=== PATIENT | female | born 1955 | race Two or more races ===

== ENCOUNTER → 2018-02-02 | Outpatient (CLI) | payer MEDICARE, MEDICAID ==
[~2018-02-02] MED LIST: CARI-316; GABA300C10; HYDR-2598
[2018-02-02 10:25] LABS: Urine Bacteria MOD /hpf (None Seen); Urine Blood Negative /uL (Negative); Urine WBC 136 /hpf (0 - 5)
[2018-02-02 11:06] LABS: Alanine Aminotransferase 24 U/L (13-56); Albumin 3.8 g/dL (3.4-5.0); Alkaline Phosphatase 186 U/L (45-117); Aspartate Aminotransferase 18 U/L (15-37); Bilirubin, Direct < 0.1 mg/dL (0-0.2); Bilirubin, Total 0.4 mg/dL (0.2-1.0); CRP High Sensitivity 1.22 mg/dL (< 0.3); Cholesterol 237 mg/dL (< 200); HDL Cholesterol 60 mg/dL (40-59); LDL Cholesterol 167 mg/dL (< 100); Triglycerides 159 mg/dL (< 150)
== END | disposition home or self-care (01) ==
LOC: LAB 09:17
PROVIDERS: ATTEND Internal Medicine
DX: Z00.01 Encounter for general adult medical examination with abnormal findings (principal); I10 Essential (primary) hypertension; M79.7 Fibromyalgia; F32.0 Major depressive disorder, single episode, mild; F41.9 Anxiety disorder, unspecified; Z79.899 Other long term (current) drug therapy
CPT/HCPCS: 36415; 80061; 80076; 81001; 83036; 84443; 85652; 86141

== ENCOUNTER 2018-06-04 08:24 | Emergency (ER) | payer MEDICARE, MEDICAID ==
[~2018-06-04] VITALS: Ht 160 cm; Wt 95.3 kg
[~2018-06-04 08:24] MED LIST changes: -CARI-316; +CARI350T22
[2018-06-04] MEDS ORDERED: KETOROLAC TROMETH 30 MG/ML 1ML VIAL IV ONE (09:15)
[2018-06-04] MEDS ORDERED: LORazepam 2MG/ML-1ML VIAL IV ONE (09:15)
[2018-06-04 09:20] LABS: Basophils # (auto) 0 uL; Basophils % (auto) 0.4 % (0.0-2.0); Eosinophils # (auto) 0.2 uL; Eosinophils % (auto) 2.5 % (0.0-7.0); Hematocrit 37.1 % (36.0-46.0); Hemoglobin 12.2 g/dL (12.2-16.2); Lymphocytes # (auto) 1.1 uL; Lymphocytes % (auto) 17.1 % (10.0-50.0); Mean Corpuscular Hemoglobin 29.3 pg (28.0-32.0); Mean Corpuscular Volume 88.7 fL (80.0-100.0); Monocytes # (auto) 0.3 uL; Neutrophils # (auto) 4.8 uL; Platelet Count (auto) 340 10^3/uL (140-450); Red Blood Cells 4.18 10^6/uL (4.0-5.20); Red Cell Distribution Width 13.4 % (11.8-14.3); White Blood Cell 6.4 10^3/uL (4.4-10.8)
[2018-06-04 09:39] LABS: Albumin 3.7 g/dL (3.4-5.0); Anion Gap 7 (5-15); Blood Urea Nitrogen 8 mg/dL (7-18); Calcium 9.3 mg/dL (8.5-10.1); Carbon Dioxide 25 mmol/L (21-32); Chloride 109 mmol/L (98-107); Glucose 85 mg/dL (74-106); Potassium 3.6 mmol/L (3.5-5.1); Sodium 141 mmol/L (136-145)
[2018-06-04 09:43] LABS: Alanine Aminotransferase 42 U/L (13-56); Alkaline Phosphatase 201 U/L (45-117); Aspartate Aminotransferase 24 U/L (15-37); BUN/Creatinine Ratio 10.5; Bilirubin, Total 0.4 mg/dL (0.2-1.0); GFR African American 99 mL/min; GFR Non-African American 82 mL/min; Total Protein 7.9 g/dL (6.4-8.2)
[2018-06-04 09:45] VITALS: BP 157/101
[2018-06-04 10:34] LABS: Urine Bacteria MOD /hpf (None Seen); Urine Blood Negative /uL (Negative); Urine Mucus FEW (None Seen); Urine Specific Gravity 1.013 (1.001-1.035); Urine WBC 17 /hpf (0 - 5)
[2018-06-04] MEDS ORDERED: HYDROcodone-ACET 10/325MG TAB PO ONE (11:00)
[2018-06-04] MEDS ORDERED: cefTRIAXone 1GM/50ML D5W 50 ML IV ONE (11:00)
== END 2018-06-04 11:33 | disposition home or self-care (01) ==
LOC: ER 08:24
DX: M79.7 Fibromyalgia (principal); N39.0 Urinary tract infection, site not specified; R51 Headache; R42 Dizziness and giddiness; I10 Essential (primary) hypertension; Z88.2 Allergy status to sulfonamides; Z88.6 Allergy status to analgesic agent
CPT/HCPCS: 36415; 71045; 80053; 81001; 83880; 84443; 84484; 85025; 96365; 96375; 99285; J0696; J1885; J2060

== ENCOUNTER → 2018-10-27 | Outpatient (CLI) | payer MEDICARE, MEDICAID ==
[2018-10-27 08:15] LABS: Cholesterol 199 mg/dL (< 200); Triglycerides 128 mg/dL (< 150)
[2018-10-27 08:17] LABS: HDL Cholesterol 74 mg/dL (40-59); LDL Cholesterol 111 mg/dL (< 100)
== END | disposition home or self-care (01) ==
LOC: LAB 07:46
PROVIDERS: ATTEND Internal Medicine
DX: Z12.11 Encounter for screening for malignant neoplasm of colon (principal); I10 Essential (primary) hypertension; E78.2 Mixed hyperlipidemia; Z79.899 Other long term (current) drug therapy
CPT/HCPCS: 36415; 80061; 83036

== ENCOUNTER → 2018-11-02 | Outpatient (CLI) | payer MEDICARE, MEDICAID | END | disposition home or self-care (01) | LOC: LAB 08:43 | PROVIDERS: ATTEND Internal Medicine | DX: Z12.11 Encounter for screening for malignant neoplasm of colon (principal); I10 Essential (primary) hypertension | CPT/HCPCS: 82270 ==

== ENCOUNTER → 2018-11-18 | Outpatient (CLI) | payer MEDICARE, MEDICAID ==
[2018-11-18 15:43] LABS: Alanine Aminotransferase 18 U/L (13-56); Aspartate Aminotransferase 16 U/L (15-37); Bilirubin, Direct < 0.1 mg/dL (0-0.2)
[2018-11-18 15:45] LABS: Alkaline Phosphatase 125 U/L (45-117); Bilirubin, Total 0.3 mg/dL (0.2-1.0); Total Protein 7.4 g/dL (6.4-8.2)
== END | disposition home or self-care (01) ==
LOC: LAB 14:12
PROVIDERS: ATTEND Internal Medicine
DX: E11.9 Type 2 diabetes mellitus without complications (principal); I10 Essential (primary) hypertension
CPT/HCPCS: 36415; 80076

== ENCOUNTER → 2018-12-28 | Day surgery (SDC) | payer MEDICARE, MEDICAID ==
[2018-12-24 12:36] LABS: Basophils # (auto) 0.1 uL; Basophils % (auto) 0.9 % (0.0-2.0); Eosinophils # (auto) 0.2 uL; Eosinophils % (auto) 3.4 % (0.0-7.0); Hematocrit 35.2 % (36.0-46.0); Hemoglobin 11.9 g/dL (12.2-16.2); Lymphocytes # (auto) 1.1 uL; Lymphocytes % (auto) 19.3 % (10.0-50.0); Mean Corpuscular Hemoglobin 30.4 pg (28.0-32.0); Mean Corpuscular Hgb Conc. 33.8 g/dL (32.0-36.0); Mean Corpuscular Volume 89.8 fL (80.0-100.0); Monocytes # (auto) 0.3 uL; Monocytes % (auto) 4.9 % (0.0-12.0); Neutrophils # (auto) 4.1 uL; Neutrophils % (auto) 71.5 % (37.0-80.0); Platelet Count (auto) 308 10^3/uL (140-450); Red Blood Cells 3.92 10^6/uL (4.0-5.20); Red Cell Distribution Width 13.4 % (11.8-14.3); White Blood Cell 5.7 10^3/uL (4.4-10.8)
[2018-12-24 12:39] LABS: Urine Blood Negative /uL (Negative); Urine Specific Gravity 1.012 (1.001-1.035)
[2018-12-24 12:53] LABS: INR 1.01 (0.9-1.15); Partial Thromboplastin Time 30.5 sec (23.78-33.04)
[2018-12-24 14:31] LABS: Calcium 9.2 mg/dL (8.5-10.1)
[2018-12-24 14:37] LABS: BUN/Creatinine Ratio 15.5; Bilirubin, Total 0.2 mg/dL (0.2-1.0); Total Protein 7.6 g/dL (6.4-8.2)
[~2018-12-28] VITALS: Ht 160 cm; Wt 92.5 kg
[~2018-12-28] MED LIST changes: -CARI350T22; -GABA300C10; +GLYCOPYRROLATE 0.2 MG/ML 1ML VIAL ONE; -HYDR-2598; +HYDR-4683 PO; +HYDROmorphone HCL 2 MG/ML VL IV PRN; +KETOROLAC TROMETH 30 MG/ML 1ML VIAL ONE; +LIDOCAINE 1% HCL (LOCAL ANESTH.) INJ 20ML MDV ONE; +LISI10TA6 PO; +MEPERIDINE HCL (50 MG/ML) 1 ML VIAL ONE; +METF-370 PO; +METO-169 PO; +METOCLOPRAMIDE HCL 5MG/ml INJ 2ml VIAL ONE; +MIDAZOLAM HCL 1MG/1ML-2 ML VIAL ONE; +MORPHINE SULF(PF) 0.5MG/ML 10ML VIAL ONE; +NALOXONE HCL 0.4 MG/ML VIAL IV PRN; +NEOSTIGMINE 1 MG/ML INJ (10mg/10ML VIAL) ONE; +ONDANSETRON HCL 4 MG/2 ML VIAL IV ONE; +PROPOFOL 10 MG/ML 20 ML IV ONE; +ROCURONIUM 10MG/ML 10ML VIAL IV ONE; +SUCCINYLCHOLINE CHLORIDE 20 MG/ML 10ML VIAL IV ONE; +ceFAZolin 1GM/50ML 100 ML IV ONE; +fentaNYL CITRATE 100 MCG/2 ML VL ONE
[2018-12-28] MEDS: HYDROmorphone HCL 2 MG/ML VL IV PRN ×2 (09:17→09:27)
[2018-12-28] MEDS: MEPERIDINE HCL (25 MG/ML) 1ML VIAL IV PRN ×2 (09:40→09:55)
[2018-12-28 10:14] VITALS: BP 112/77
== END | disposition home or self-care (01) ==
LOC: SUR 05:56
PROVIDERS: ATTEND Orthopaedic Surgery
DX: S83.282A Other tear of lateral meniscus, current injury, left knee, initial encounter (principal); S83.242A Other tear of medial meniscus, current injury, left knee, initial encounter; M11.262 Other chondrocalcinosis, left knee; M17.12 Unilateral primary osteoarthritis, left knee; E66.8 Other obesity; E11.9 Type 2 diabetes mellitus without complications; G89.29 Other chronic pain; F32.9 Major depressive disorder, single episode, unspecified; I10 Essential (primary) hypertension; G47.33 Obstructive sleep apnea (adult) (pediatric); K21.9 Gastro-esophageal reflux disease without esophagitis; M19.90 Unspecified osteoarthritis, unspecified site; Z68.36 Body mass index [BMI] 36.0-36.9, adult; Z79.899 Other long term (current) drug therapy; Z88.2 Allergy status to sulfonamides; Z91.041 Radiographic dye allergy status; Z98.890 Other specified postprocedural states; X58.XXXA Exposure to other specified factors, initial encounter; Y93.89 Activity, other specified; Y92.89 Other specified places as the place of occurrence of the external cause; Y99.8 Other external cause status
CPT/HCPCS: 29876; 29879; 29880; 36415; 80053; 81003; 82962; 85025; 85610; 85730; J0330; J0690; J1170; J1885; J2001; J2175; J2250; J2270; J2704; J2765; J3010

== ENCOUNTER 2019-10-19 09:36 | Inpatient (IN) | payer MEDICARE, MEDICAID ==
[~2019-10-19] VITALS: Ht 160 cm; Wt 90.7 kg
[~2019-10-19 09:36] MED LIST changes: -GLYCOPYRROLATE 0.2 MG/ML 1ML VIAL ONE; -HYDR-4683 PO; +HYDR-4833 PO; -HYDROmorphone HCL 2 MG/ML VL IV PRN; -KETOROLAC TROMETH 30 MG/ML 1ML VIAL ONE; -LIDOCAINE 1% HCL (LOCAL ANESTH.) INJ 20ML MDV ONE; -MEPERIDINE HCL (50 MG/ML) 1 ML VIAL ONE; -METOCLOPRAMIDE HCL 5MG/ml INJ 2ml VIAL ONE; -MIDAZOLAM HCL 1MG/1ML-2 ML VIAL ONE; -MORPHINE SULF(PF) 0.5MG/ML 10ML VIAL ONE; -NALOXONE HCL 0.4 MG/ML VIAL IV PRN; -NEOSTIGMINE 1 MG/ML INJ (10mg/10ML VIAL) ONE; -ONDANSETRON HCL 4 MG/2 ML VIAL IV ONE; -PROPOFOL 10 MG/ML 20 ML IV ONE; -ROCURONIUM 10MG/ML 10ML VIAL IV ONE; -SUCCINYLCHOLINE CHLORIDE 20 MG/ML 10ML VIAL IV ONE; -ceFAZolin 1GM/50ML 100 ML IV ONE; -fentaNYL CITRATE 100 MCG/2 ML VL ONE
[2019-10-19] MEDS ORDERED: SODIUM CHLORIDE 0.9% 500 ML IV ONE (09:53)
[2019-10-19] MEDS ORDERED: ONDANSETRON HCL 4 MG/2 ML VIAL IV ONE (10:15)
[2019-10-19] MEDS ORDERED: MORPHINE SULF INJ 2 MG/ML SYRINGE 1ML IV ONE (10:15)
[2019-10-19 10:16] LABS: Basophils # (auto) 0 10 ^3/uL (0-0.2); Basophils % (auto) 0.6 % (0.0-2.0); Eosinophils # (auto) 0.2 10 ^3/uL (0-0.8); Eosinophils % (auto) 3.7 % (0.0-7.0); Hematocrit 33.9 % (36.0-46.0); Hemoglobin 11.3 g/dL (12.2-16.2); Lymphocytes % (auto) 15.1 % (10.0-50.0); Mean Corpuscular Hemoglobin 29.9 pg (28.0-32.0); Mean Corpuscular Hgb Conc. 33.4 g/dL (32.0-36.0); Mean Corpuscular Volume 89.5 fL (80.0-100.0); Monocytes # (auto) 0.4 10 ^3/uL (0-1.3); Monocytes % (auto) 6.3 % (0.0-12.0); Neutrophils # (auto) 4.8 10 ^3/uL (1.6-8.6); Neutrophils % (auto) 74.3 % (37.0-80.0); Platelet Count (auto) 349 10^3/uL (140-450); Red Blood Cells 3.79 10^6/uL (4.0-5.20); Red Cell Distribution Width 13.2 % (11.8-14.3); White Blood Cell 6.5 10^3/uL (4.4-10.8)
[2019-10-19 10:31] LABS: Albumin 3.5 g/dL (3.4-5.0); Anion Gap 6 (5-15); Blood Urea Nitrogen 13 mg/dL (7-18); Calcium 8.6 mg/dL (8.5-10.1); Carbon Dioxide 27 mmol/L (21-32); Chloride 101 mmol/L (98-107); Glucose 81 mg/dL (74-106); Potassium 4.3 mmol/L (3.5-5.1); Sodium 134 mmol/L (136-145)
[2019-10-19 10:37] LABS: Alanine Aminotransferase 17 U/L (13-56); Alkaline Phosphatase 115 U/L (45-117); Aspartate Aminotransferase 15 U/L (15-37); BUN/Creatinine Ratio 14.4; Bilirubin, Total 0.3 mg/dL (0.2-1.0); GFR African American 82 mL/min; GFR Non-African American 67 mL/min
[2019-10-19] MEDS ORDERED: HYDROcodone-ACET 5/325MG TAB PO PRN (12:30)
[2019-10-19] MEDS ORDERED: ALBUTEROL SULF 2.5 MG/0.5ML(0.5%) NEB SOLN NEB PRN (12:30)
[2019-10-19] MEDS ORDERED: MORPHINE SULF INJ 2 MG/ML SYRINGE 1ML IV PRN (12:30)
[2019-10-19] MEDS ORDERED: IPRATROPIUM BROM 0.5 MG/2.5ML INH SOL NEB PRN (12:30)
[2019-10-19] MEDS ORDERED: NITROGLYCERIN 0.4 MG SL TAB SL PRN (12:30)
[2019-10-19] MEDS ORDERED: ACETAMINOPHEN 500 MG TAB PO PRN (12:30)
[2019-10-19] MEDS ORDERED: DEXTROSE (50%) 50ML SYRG IV PRN (12:30)
[2019-10-19] MEDS ORDERED: FAMOTIDINE 20 MG TAB PO ONE (12:45)
[2019-10-19 13:15] LABS: Cholesterol 147 mg/dL (< 200)
[2019-10-19 13:17] LABS: HDL Cholesterol 63 mg/dL (40-59); LDL Cholesterol 72 mg/dL (< 100); Triglycerides 204 mg/dL (< 150)
[2019-10-19] MEDS: SODIUM CHLORIDE 0.9% 1,000 ML IV SCH (13:35)
[2019-10-19 13:36] LABS: Urine Bacteria NONE SEEN /hpf (None Seen); Urine Blood Negative /uL (Negative); Urine Hyaline Cast FEW /lpf (0 - 2); Urine Specific Gravity 1.007 (1.001-1.035); Urine WBC 8 /hpf (0 - 5)
[2019-10-19 14:08] VITALS: BP 116/68
[2019-10-19 14:30] VITALS: BP 126/57
[2019-10-19] MEDS ORDERED: ATOR10TA PO (16:31)
[2019-10-19] MEDS ORDERED: GABA-339 PO (16:31)
[2019-10-19] MEDS ORDERED: HYDR-531 PO (16:31)
[2019-10-19] MEDS ORDERED: AMIT75TA2 PO (16:31)
[2019-10-19] MEDS ORDERED: IBUP200C95 PO (16:31)
[2019-10-19] MEDS ORDERED: CITA10TA70 PO (16:46)
[2019-10-19] MEDS ORDERED: TIZA4CAP PO (16:47)
[2019-10-19] MEDS ORDERED: AMLO5TAB15 PO (16:48)
[2019-10-19 17:00] VITALS: BP 118/78
[2019-10-19] MEDS: ACCU-CHEK COMFORT CURVE STRIP VI SCH ×2 (17:00→22:03)
[2019-10-19] MEDS: InsuLIN REG 1unit/0.01ml Soln (100units/ml) SC SCH ×2 (17:00→22:00)
[2019-10-19] MEDS: HYDROcodone-ACET 10/325MG TAB PO PRN (19:47)
[2019-10-19] MEDS: LORazepam 2MG/ML-1ML VIAL IV PRN (21:08)
[2019-10-19 22:00] VITALS: BP 114/75
[2019-10-20] VITALS (7 sets, daily range): BP systolic 112–165; BP diastolic 67–80
[2019-10-20] MEDS: SODIUM CHLORIDE 0.9% 1,000 ML IV SCH ×2 (01:50→15:10)
[2019-10-20] MEDS: ONDANSETRON HCL 4 MG/2 ML VIAL IV PRN ×2 (01:57→19:36)
[2019-10-20] MEDS: MORPHINE SULF INJ 2 MG/ML SYRINGE 1ML IV PRN ×2 (01:58→19:36)
[2019-10-20] MEDS: ACCU-CHEK COMFORT CURVE STRIP VI SCH ×4 (06:19→22:28)
[2019-10-20] MEDS: InsuLIN REG 1unit/0.01ml Soln (100units/ml) SC SCH ×4 (06:19→22:00)
[2019-10-20] MEDS: FAMOTIDINE 20 MG TAB PO SCH (09:40)
[2019-10-20] MEDS: HYDROcodone-ACET 10/325MG TAB PO PRN ×3 (09:41→22:28)
[2019-10-20] MEDS: LORazepam 2MG/ML-1ML VIAL IV PRN (11:43)
[2019-10-20] MEDS ORDERED: CITALOPRAM HYDROBR 20 MG TAB PO ONE (12:30)
[2019-10-20] MEDS ORDERED: MECLIZINE HCL 25 MG TAB PO PRN (12:45)
[2019-10-20 13:11] LABS: BUN/Creatinine Ratio 14.5; Calcium 8.8 mg/dL (8.5-10.1); Potassium 4.3 mmol/L (3.5-5.1)
[2019-10-20] MEDS ORDERED: AMITRIPTYLINE HCL 25 MG TAB PO SCH (22:00)
[2019-10-21 05:31] VITALS: BP 126/69
[2019-10-21] MEDS: SODIUM CHLORIDE 0.9% 1,000 ML IV SCH (06:49)
[2019-10-21] MEDS: ACCU-CHEK COMFORT CURVE STRIP VI SCH ×2 (06:49→11:58)
[2019-10-21] MEDS: InsuLIN REG 1unit/0.01ml Soln (100units/ml) SC SCH ×2 (06:49→11:30)
[2019-10-21 08:30] VITALS: BP 117/75
[2019-10-21] MEDS: FAMOTIDINE 20 MG TAB PO SCH (09:32)
[2019-10-21] MEDS: HYDROcodone-ACET 10/325MG TAB PO PRN (09:35)
[2019-10-21] MEDS ORDERED: PYRIDOXINE HCL 50 MG TAB PO SCH (10:00)
[2019-10-21] MEDS ORDERED: CITALOPRAM HYDROBR 20 MG TAB PO SCH (10:00)
[2019-10-21 12:30] VITALS: BP 124/79
== END 2019-10-21 14:06 | disposition home or self-care (01) | DRG 312 ==
LOC: ER 09:36 → TELE 09:37 → TELE-EAST 14:31
PROVIDERS: ADMIT Nurse Practitioner Acute Care; ATTEND Internal Medicine
DX: I95.2 Hypotension due to drugs (principal); E66.9 Obesity, unspecified; F32.9 Major depressive disorder, single episode, unspecified; F41.9 Anxiety disorder, unspecified; R51 Headache; E11.9 Type 2 diabetes mellitus without complications; T50.905A Adverse effect of unspecified drugs, medicaments and biological substances, initial encounter; Y92.89 Other specified places as the place of occurrence of the external cause; I10 Essential (primary) hypertension; Z80.9 Family history of malignant neoplasm, unspecified; Z83.3 Family history of diabetes mellitus; Z96.659 Presence of unspecified artificial knee joint; Z88.2 Allergy status to sulfonamides; Z91.041 Radiographic dye allergy status
CPT/HCPCS: 36415; 70450; 71045; 80048; 80053; 80061; 81001; 82962; 83036; 84443; 84484; 85025; 85652; 93005; 93306; 93886; 96361; 96374; 96375; G0378; J2405

== ENCOUNTER 2020-01-14 10:33 | Inpatient (IN) | payer MEDICARE, MEDICAID ==
[~2020-01-14] VITALS: Ht 160 cm; Wt 97.9 kg
[~2020-01-14 10:33] MED LIST changes: +AMIT75TA2 PO; +ATOR10TA PO; +CITA10TA70 PO; +GABA-339 PO; -HYDR-4833 PO; +HYDR-531 PO; +IBUP200C95 PO; -LISI10TA6 PO; -METF-370 PO; -METO-169 PO; +TIZA4CAP PO
[2020-01-14] MEDS ORDERED: ACETAMINOPHEN 325 MG TAB PO ONE (11:00)
[2020-01-14] MEDS ORDERED: SODIUM CHLORIDE 0.9% 1,000 ML IV ONE (11:12)
[2020-01-14 11:44] LABS: Basophils # (auto) 0 10 ^3/uL (0-0.2); Basophils % (auto) 0.6 % (0.0-2.0); Eosinophils # (auto) 0 10 ^3/uL (0-0.8); Eosinophils % (auto) 0.3 % (0.0-7.0); Hematocrit 39.4 % (36.0-46.0); Hemoglobin 12.9 g/dL (12.2-16.2); Lymphocytes # (auto) 0.6 10 ^3/uL (0.4-5.4); Mean Corpuscular Hemoglobin 27.9 pg (28.0-32.0); Mean Corpuscular Hgb Conc. 32.8 g/dL (32.0-36.0); Monocytes # (auto) 0.3 10 ^3/uL (0-1.3); Monocytes % (auto) 6.8 % (0.0-12.0); Neutrophils # (auto) 3.1 10 ^3/uL (1.6-8.6); Neutrophils % (auto) 78.3 % (37.0-80.0); Platelet Count (auto) 222 10^3/uL (140-450); Red Blood Cells 4.64 10^6/uL (4.0-5.20); Red Cell Distribution Width 14.1 % (11.8-14.3)
[2020-01-14 12:04] LABS: Albumin 3.6 g/dL (3.4-5.0); Calcium 8.1 mg/dL (8.5-10.1)
[2020-01-14 12:07] LABS: BUN/Creatinine Ratio 12.2; Bilirubin, Total 0.2 mg/dL (0.2-1.0); Total Protein 7.4 g/dL (6.4-8.2)
[2020-01-14 12:21] LABS: Magnesium 1.8 mg/dL (1.6-2.6)
[2020-01-14] MEDS ORDERED: KETOROLAC TROMETH 30 MG/ML 1ML VIAL IV ONE ×2 (13:00)
[2020-01-14] MEDS ORDERED: cefTRIAXone 1GM/50ML D5W 50 ML IV ONE (13:00)
[2020-01-14 13:13] LABS: INR 1.03 (0.9-1.15); Partial Thromboplastin Time 34.7 sec (23.64-32.05)
[2020-01-14] MEDS ORDERED: AZITHROMYCIN 500MG/ 250ML 250 ML IV ONE (17:15)
[2020-01-14] MEDS ORDERED: ZINC SULFATE 220mg CAP or TAB PO ONE (17:15)
[2020-01-14] MEDS ORDERED: LORazepam 0.5 MG TAB PO ONE (17:30)
[2020-01-14 17:42] LABS: Urine WBC None Seen /hpf (0 - 5)
[2020-01-14 17:51] LABS: Urine Bacteria NONE SEEN /hpf (None Seen); Urine Blood TRACE /uL (Negative); Urine Specific Gravity 1.008 (1.001-1.035)
[2020-01-14] MEDS ORDERED: MORPHINE SULF INJ 2 MG/ML SYRINGE 1ML IV PRN (18:30)
[2020-01-14] MEDS ORDERED: NITROGLYCERIN 0.4 MG SL TAB SL PRN (18:30)
[2020-01-14] MEDS ORDERED: NOREPINEPHRINE 8 MG/250ML KIT 250 ML IV ONE (18:50)
[2020-01-14 18:58] LABS: CRP High Sensitivity 4.86 mg/dL (< 0.3)
[2020-01-14] MEDS: NOREPINEPHRINE 8 MG/250ML KIT 250 ML IV SCH (19:00)
[2020-01-14] MEDS ORDERED: ALBUTEROL SULF HFA 90MCG INH 200DOSE IN SCH (22:00)
[2020-01-14] MEDS: DOXYCYCLINE 100 MG TAB/CAP PO SCH (22:02)
[2020-01-14] MEDS: ACETAMINOPHEN 500 MG TAB PO PRN (22:46)
[2020-01-15] MEDS: PIPERACILLIN-TAZOB 3.375GM 100 ML IV SCH ×5 (05:53→23:48)
[2020-01-15 07:18] LABS: Basophils # (auto) 0 10 ^3/uL (0-0.2); Basophils % (auto) 0.3 % (0.0-2.0); Eosinophils # (auto) 0 10 ^3/uL (0-0.8); Eosinophils % (auto) 0.7 % (0.0-7.0); Hematocrit 35.6 % (36.0-46.0); Hemoglobin 11.4 g/dL (12.2-16.2); Lymphocytes # (auto) 0.7 10 ^3/uL (0.4-5.4); Lymphocytes % (auto) 25.2 % (10.0-50.0); Mean Corpuscular Hemoglobin 27.5 pg (28.0-32.0); Mean Corpuscular Hgb Conc. 31.9 g/dL (32.0-36.0); Mean Corpuscular Volume 86.2 fL (80.0-100.0); Monocytes # (auto) 0.2 10 ^3/uL (0-1.3); Monocytes % (auto) 6.1 % (0.0-12.0); Neutrophils # (auto) 1.9 10 ^3/uL (1.6-8.6); Neutrophils % (auto) 67.7 % (37.0-80.0); Nucleated Red Blood Cells % 0.3 %; Platelet Count (auto) 221 10^3/uL (140-450); Red Blood Cells 4.13 10^6/uL (4.0-5.20); Red Cell Distribution Width 14.4 % (11.8-14.3); White Blood Cell 2.9 10^3/uL (4.4-10.8)
[2020-01-15 07:53] LABS: Potassium 3.9 mmol/L (3.5-5.1)
[2020-01-15 08:00] LABS: Albumin 2.9 g/dL (3.4-5.0); BUN/Creatinine Ratio 14.8; Bilirubin, Total 0.2 mg/dL (0.2-1.0); Calcium 7.7 mg/dL (8.5-10.1); Total Protein 6.3 g/dL (6.4-8.2)
[2020-01-15] MEDS: ACETAMINOPHEN 500 MG TAB PO PRN ×2 (08:40→16:47)
[2020-01-15] MEDS: ZINC SULFATE 220mg CAP or TAB PO SCH (10:24)
[2020-01-15] MEDS: DOXYCYCLINE 100 MG TAB/CAP PO SCH ×2 (10:25→23:09)
[2020-01-15] MEDS: ASCORBIC ACID 1,000 MG TAB PO SCH (10:25)
[2020-01-15] MEDS: CHOLECALCIFEROL (VITD3) 1,000IU=25mCg TAB PO SCH (10:26)
[2020-01-15] MEDS: ENOXAPARIN SOD 40 MG/0.4 ML SYRINGE SC SCH (10:27)
[2020-01-15] MEDS ORDERED: ONDANSETRON HCL 4 MG/2 ML VIAL IV ONE (10:30)
[2020-01-15] MEDS ORDERED: MORPHINE SULF INJ 2 MG/ML SYRINGE 1ML IV ONE (10:30)
[2020-01-15] MEDS ORDERED: traMADol HCL 50 MG TAB PO PRN (13:00)
[2020-01-15] MEDS ORDERED: LORazepam 0.5 MG TAB PO PRN (13:00)
[2020-01-15] MEDS ORDERED: hydrALAZINE HCL 20 MG/ML VL IV PRN (13:00)
[2020-01-15 13:40] VITALS: BP 185/106
[2020-01-15] MEDS ORDERED: BUSP15TA60 PO (13:59)
[2020-01-15] MEDS ORDERED: ATOR10TA52 (14:03)
[2020-01-15] MEDS: LORazepam 2MG/ML-1ML VIAL IV PRN (15:17)
[2020-01-15 17:18] VITALS: BP 159/99
[2020-01-15] MEDS: NOREPINEPHRINE 8 MG/250ML KIT 250 ML IV SCH (18:21)
[2020-01-15] MEDS ORDERED: amLODIPine BESYLATE 5 MG TAB PO ONE (18:45)
[2020-01-15] MEDS ORDERED: HYDROcodone-ACET 10/325MG TAB PO PRN (18:45)
[2020-01-15 22:00] VITALS: BP 117/65
[2020-01-15] MEDS: HYDROcodone-ACET 10/325MG TAB PO PRN (23:42)
[2020-01-16 06:00] VITALS: BP 136/81
[2020-01-16] MEDS: PIPERACILLIN-TAZOB 3.375GM 100 ML IV SCH ×2 (06:25→14:14)
[2020-01-16 06:34] LABS: Basophils # (auto) 0 10 ^3/uL (0-0.2); Basophils % (auto) 0.4 % (0.0-2.0); Eosinophils # (auto) 0 10 ^3/uL (0-0.8); Eosinophils % (auto) 0.6 % (0.0-7.0); Hematocrit 36.6 % (36.0-46.0); Lymphocytes # (auto) 0.9 10 ^3/uL (0.4-5.4); Lymphocytes % (auto) 26.3 % (10.0-50.0); Mean Corpuscular Hemoglobin 27.7 pg (28.0-32.0); Mean Corpuscular Volume 84.1 fL (80.0-100.0); Monocytes # (auto) 0.2 10 ^3/uL (0-1.3); Monocytes % (auto) 6.1 % (0.0-12.0); Neutrophils # (auto) 2.2 10 ^3/uL (1.6-8.6); Neutrophils % (auto) 66.6 % (37.0-80.0); Nucleated Red Blood Cells % 0.2 %; Platelet Count (auto) 248 10^3/uL (140-450); Red Blood Cells 4.34 10^6/uL (4.0-5.20); Red Cell Distribution Width 14.2 % (11.8-14.3); White Blood Cell 3.3 10^3/uL (4.4-10.8)
[2020-01-16] MEDS: MORPHINE SULF INJ 2 MG/ML SYRINGE 1ML IV PRN ×2 (06:40→22:04)
[2020-01-16 06:59] LABS: Albumin 3.3 g/dL (3.4-5.0); Calcium 8.3 mg/dL (8.5-10.1); Potassium 3.7 mmol/L (3.5-5.1)
[2020-01-16 07:11] LABS: BUN/Creatinine Ratio 14.1; Bilirubin, Total 0.3 mg/dL (0.2-1.0); CRP High Sensitivity 4.06 mg/dL (< 0.3); Total Protein 6.7 g/dL (6.4-8.2)
[2020-01-16 08:00] VITALS: BP 157/94
[2020-01-16] MEDS: ENOXAPARIN SOD 40 MG/0.4 ML SYRINGE SC SCH (10:13)
[2020-01-16] MEDS: HYDROcodone-ACET 10/325MG TAB PO PRN ×2 (10:14→18:23)
[2020-01-16] MEDS: CHOLECALCIFEROL (VITD3) 1,000IU=25mCg TAB PO SCH (10:14)
[2020-01-16] MEDS: ZINC SULFATE 220mg CAP or TAB PO SCH (10:15)
[2020-01-16] MEDS: DOXYCYCLINE 100 MG TAB/CAP PO SCH ×2 (10:15→21:51)
[2020-01-16] MEDS: ASCORBIC ACID 1,000 MG TAB PO SCH (10:15)
[2020-01-16] MEDS: amLODIPine BESYLATE 5 MG TAB PO SCH (10:16)
[2020-01-16] MEDS: LORazepam 2MG/ML-1ML VIAL IV PRN (11:41)
[2020-01-16 13:00] VITALS: BP 151/95
[2020-01-16] MEDS ORDERED: guaiFENesin-CODEINE Liq 5 ML UD PO ONE (14:15)
[2020-01-16 17:00] VITALS: BP 140/87
[2020-01-16 22:00] VITALS: BP 120/69
[2020-01-16] MEDS: guaiFENesin-CODEINE Liq 5 ML UD PO PRN (22:37)
[2020-01-17] MEDS: HYDROcodone-ACET 10/325MG TAB PO PRN ×2 (02:02→07:55)
[2020-01-17 05:00] VITALS: BP 141/98
[2020-01-17 08:00] VITALS: BP 152/84
[2020-01-17 09:00] VITALS: BP 151/94
[2020-01-17] MEDS: guaiFENesin-CODEINE Liq 5 ML UD PO PRN (09:45)
[2020-01-17] MEDS: ENOXAPARIN SOD 40 MG/0.4 ML SYRINGE SC SCH (09:45)
[2020-01-17] MEDS: ASCORBIC ACID 1,000 MG TAB PO SCH (09:46)
[2020-01-17] MEDS: CHOLECALCIFEROL (VITD3) 1,000IU=25mCg TAB PO SCH (09:46)
[2020-01-17] MEDS: ZINC SULFATE 220mg CAP or TAB PO SCH (09:46)
[2020-01-17] MEDS: DOXYCYCLINE 100 MG TAB/CAP PO SCH ×2 (09:46→20:53)
[2020-01-17] MEDS: amLODIPine BESYLATE 5 MG TAB PO SCH (09:47)
[2020-01-17] MEDS ORDERED: ONDANSETRON HCL 4 MG/2 ML VIAL IV PRN (11:15)
[2020-01-17 12:30] VITALS: BP 148/98
[2020-01-17 16:35] VITALS: BP 91/55
[2020-01-17] MEDS: MORPHINE SULF INJ 2 MG/ML SYRINGE 1ML IV PRN (20:54)
[2020-01-17 21:30] VITALS: BP 146/86
[2020-01-18 05:00] VITALS: BP 136/87
[2020-01-18 09:00] VITALS: BP 153/98
[2020-01-18] MEDS: ZINC SULFATE 220mg CAP or TAB PO SCH (10:08)
[2020-01-18] MEDS: amLODIPine BESYLATE 5 MG TAB PO SCH (10:08)
[2020-01-18] MEDS: CHOLECALCIFEROL (VITD3) 1,000IU=25mCg TAB PO SCH (10:09)
[2020-01-18] MEDS: DOXYCYCLINE 100 MG TAB/CAP PO SCH ×2 (10:09→20:53)
[2020-01-18] MEDS: ASCORBIC ACID 1,000 MG TAB PO SCH (10:09)
[2020-01-18] MEDS: ENOXAPARIN SOD 40 MG/0.4 ML SYRINGE SC SCH (10:11)
[2020-01-18] MEDS: LORazepam 2MG/ML-1ML VIAL IV PRN (10:29)
[2020-01-18 13:00] VITALS: BP 163/89
[2020-01-18 14:00] VITALS: BP 163/89
[2020-01-18] MEDS: ALBUTEROL SULF HFA 90MCG INH 200DOSE IN SCH ×2 (14:25→20:52)
[2020-01-18 17:24] VITALS: BP 125/85
[2020-01-18] MEDS: MORPHINE SULF INJ 2 MG/ML SYRINGE 1ML IV PRN (20:54)
[2020-01-19] MEDS: ALBUTEROL SULF HFA 90MCG INH 200DOSE IN SCH ×2 (04:22→15:15)
[2020-01-19 04:54] VITALS: BP 135/88
[2020-01-19 05:18] LABS: Basophils # (auto) 0 10 ^3/uL (0-0.2); Basophils % (auto) 0.2 % (0.0-2.0); Eosinophils # (auto) 0 10 ^3/uL (0-0.8); Eosinophils % (auto) 0.1 % (0.0-7.0); Hematocrit 40.2 % (36.0-46.0); Hemoglobin 13.2 g/dL (12.2-16.2); Lymphocytes # (auto) 0.6 10 ^3/uL (0.4-5.4); Lymphocytes % (auto) 13.9 % (10.0-50.0); Mean Corpuscular Hemoglobin 27.2 pg (28.0-32.0); Mean Corpuscular Hgb Conc. 32.8 g/dL (32.0-36.0); Mean Corpuscular Volume 82.8 fL (80.0-100.0); Monocytes # (auto) 0.4 10 ^3/uL (0-1.3); Monocytes % (auto) 8.5 % (0.0-12.0); Neutrophils # (auto) 3.2 10 ^3/uL (1.6-8.6); Neutrophils % (auto) 77.3 % (37.0-80.0); Nucleated Red Blood Cells % 0.1 %; Platelet Count (auto) 330 10^3/uL (140-450); Red Blood Cells 4.85 10^6/uL (4.0-5.20); Red Cell Distribution Width 14.1 % (11.8-14.3); White Blood Cell 4.2 10^3/uL (4.4-10.8)
[2020-01-19 05:40] LABS: Albumin 3.4 g/dL (3.4-5.0); Calcium 8.7 mg/dL (8.5-10.1); Potassium 3.2 mmol/L (3.5-5.1)
[2020-01-19 05:42] LABS: BUN/Creatinine Ratio 12.9
[2020-01-19 05:45] LABS: Bilirubin, Total 0.4 mg/dL (0.2-1.0); Total Protein 7.8 g/dL (6.4-8.2)
[2020-01-19 09:00] VITALS: BP 140/79
[2020-01-19] MEDS: ZINC SULFATE 220mg CAP or TAB PO SCH (09:39)
[2020-01-19] MEDS: amLODIPine BESYLATE 5 MG TAB PO SCH (09:39)
[2020-01-19] MEDS: CHOLECALCIFEROL (VITD3) 1,000IU=25mCg TAB PO SCH (09:40)
[2020-01-19] MEDS: DOXYCYCLINE 100 MG TAB/CAP PO SCH (09:40)
[2020-01-19] MEDS: ASCORBIC ACID 1,000 MG TAB PO SCH (09:40)
[2020-01-19] MEDS: ENOXAPARIN SOD 40 MG/0.4 ML SYRINGE SC SCH (09:41)
[2020-01-19] MEDS ORDERED: POTASSIUM CHL 20 Meq TABLET PO ONE (09:45)
[2020-01-19] MEDS: LORazepam 2MG/ML-1ML VIAL IV PRN (11:28)
[2020-01-19 13:00] VITALS: BP 140/89
[2020-01-19] MEDS ORDERED: CHOL20007 PO (14:06)
[2020-01-19] MEDS ORDERED: MULTTAB75 PO (14:06)
[2020-01-19] MEDS ORDERED: ASCO10003 PO (14:06)
[2020-01-19] MEDS ORDERED: AML5T PO (14:06)
[2020-01-19] MEDS ORDERED: DOX100T PO (14:06)
[2020-01-19] MEDS ORDERED: DEXT1SYP9 PO (14:06)
[2020-01-19 14:42] VITALS: BP 140/89
== END 2020-01-19 16:05 | disposition home or self-care (01) | DRG 177 ==
LOC: ER 10:33 → TELE 10:34 → TELE-EAST 01-15 13:33
PROVIDERS: ADMIT Nurse Practitioner Acute Care; ATTEND Internal Medicine
DX: U07.1 COVID-19 (principal); J96.00 Acute respiratory failure, unspecified whether with hypoxia or hypercapnia; I10 Essential (primary) hypertension; M79.7 Fibromyalgia; E66.9 Obesity, unspecified; E11.9 Type 2 diabetes mellitus without complications; J40 Bronchitis, not specified as acute or chronic; J02.0 Streptococcal pharyngitis; F32.9 Major depressive disorder, single episode, unspecified; F41.9 Anxiety disorder, unspecified; R19.7 Diarrhea, unspecified; Z88.2 Allergy status to sulfonamides; Z79.899 Other long term (current) drug therapy; Z98.51 Tubal ligation status; Z80.9 Family history of malignant neoplasm, unspecified; Z83.3 Family history of diabetes mellitus; Z91.041 Radiographic dye allergy status; E88.09 Other disorders of plasma-protein metabolism, not elsewhere classified; Z68.37 Body mass index [BMI] 37.0-37.9, adult
CPT/HCPCS: 36415; 36600; 71045; 80053; 81001; 82728; 82805; 83605; 83615; 83735; 83880; 84443; 84484; 85025; 85379; 85610; 85730; 86141; 87040; 87493; 87804; 87880; 93005; 94640; G0378; J0696; J1885; J2405; J2543

== ENCOUNTER 2020-12-12 05:56 | Day surgery (SDC) | payer MEDICARE, MEDICAID ==
[2020-12-10 12:17] LABS: Basophils # (auto) 0 10 ^3/uL (0-0.2); Basophils % (auto) 0.5 % (0.0-2.0); Eosinophils # (auto) 0.1 10 ^3/uL (0-0.8); Eosinophils % (auto) 2.1 % (0.0-7.0); Hematocrit 39.9 % (36.0-46.0); Hemoglobin 13.6 g/dL (12.2-16.2); Lymphocytes # (auto) 0.9 10 ^3/uL (0.4-5.4); Lymphocytes % (auto) 15.7 % (10.0-50.0); Mean Corpuscular Hemoglobin 29.7 pg (28.0-32.0); Mean Corpuscular Hgb Conc. 34.2 g/dL (32.0-36.0); Mean Corpuscular Volume 86.9 fL (80.0-100.0); Monocytes # (auto) 0.3 10 ^3/uL (0-1.3); Monocytes % (auto) 4.4 % (0.0-12.0); Neutrophils # (auto) 4.6 10 ^3/uL (1.6-8.6); Neutrophils % (auto) 77.3 % (37.0-80.0); Nucleated Red Blood Cells % 0.1 %; Platelet Count (auto) 343 10^3/uL (140-450); Red Blood Cells 4.59 10^6/uL (4.0-5.20); Red Cell Distribution Width 14.8 % (11.8-14.3); White Blood Cell 5.9 10^3/uL (4.4-10.8)
[2020-12-10 12:24] LABS: INR 1.09 (0.9-1.15); Partial Thromboplastin Time 29.5 sec (23.0-31.2)
[2020-12-10 12:26] LABS: Urine Bacteria NONE SEEN /hpf (None Seen); Urine Blood Negative /uL (Negative); Urine Specific Gravity 1.015 (1.001-1.035); Urine WBC 4 /hpf (0 - 5)
[2020-12-10 12:42] LABS: Potassium 3.7 mmol/L (3.5-5.1)
[2020-12-10 13:03] LABS: Bilirubin, Total 0.5 mg/dL (0.2-1.0); Calcium 8.7 mg/dL (8.5-10.1); Total Protein 7.6 g/dL (6.4-8.2)
[~2020-12-12] VITALS: Ht 160 cm; Wt 90.7 kg
[~2020-12-12 05:56] MED LIST changes: +AML5T PO; +ASCO10003 PO; +BUSP15TA60 PO; +CHOL20007 PO; -CITA10TA70 PO; +DEXT1SYP9 PO; +DOX100T PO; +MULTTAB75 PO
[2020-12-12] MEDS ORDERED: ceFAZolin 1GM/50ML 50 ML IV ONE (06:35)
[2020-12-12] MEDS ORDERED: ROPIVACAINE 0.5% (5MG/ML) 20ML AMPULE IJ ONE (06:54)
[2020-12-12] MEDS ORDERED: NEOMYCIN-BACITRACIN-POLYM 15GM TOP OINT TOP ONE (06:54)
[2020-12-12] MEDS ORDERED: SUCCINYLCHOLINE CHLORIDE 20 MG/ML 10ML VIAL IV ONE (07:02)
[2020-12-12] MEDS ORDERED: LIDOCAINE 1% HCL (LOCAL ANESTH.) INJ 20ML MDV ONE (07:02)
[2020-12-12] MEDS ORDERED: ceFAZolin 1GM VL ONE ×2 (07:02→07:45)
[2020-12-12] MEDS ORDERED: SODIUM CHLORIDE LOCK 10 ML ONE (07:21)
[2020-12-12] MEDS ORDERED: fentaNYL CITRATE 100 MCG/2 ML VL ONE (07:21)
[2020-12-12] MEDS ORDERED: MIDAZOLAM HCL 1MG/1ML-2 ML VIAL ONE (07:21)
[2020-12-12] MEDS ORDERED: ONDANSETRON HCL 4 MG/2 ML VIAL ONE (07:21)
[2020-12-12] MEDS ORDERED: PROPOFOL 10 MG/ML 20 ML IV ONE (07:21)
[2020-12-12] MEDS ORDERED: methylPREDNISolone ACETATE 80 MG/ML VL ONE (08:08)
[2020-12-12] MEDS ORDERED: MORPHINE SULFATE 4 MG/ML SYR/VIAL IV PRN (08:45)
[2020-12-12] MEDS ORDERED: METOCLOPRAMIDE HCL 5MG/ml INJ 2ml VIAL IV PRN (08:45)
[2020-12-12] MEDS: HYDROmorphone HCL 2 MG/ML VL IV PRN ×3 (08:50→09:10)
[2020-12-12 09:15] VITALS: BP 130/73
== END 2020-12-12 09:20 | disposition home or self-care (01) ==
LOC: SUR 05:56
PROVIDERS: ATTEND Podiatrist Foot & Ankle Surgery
DX: S86.312A Strain of muscle(s) and tendon(s) of peroneal muscle group at lower leg level, left leg, initial encounter (principal); M25.372 Other instability, left ankle; M79.7 Fibromyalgia; M19.90 Unspecified osteoarthritis, unspecified site; E66.01 Morbid (severe) obesity due to excess calories; G62.9 Polyneuropathy, unspecified; F41.9 Anxiety disorder, unspecified; F99 Mental disorder, not otherwise specified; Z20.822 Contact with and (suspected) exposure to COVID-19; Z98.890 Other specified postprocedural states; Z79.899 Other long term (current) drug therapy; Z91.041 Radiographic dye allergy status; Z88.1 Allergy status to other antibiotic agents; Z68.35 Body mass index [BMI] 35.0-35.9, adult; X58.XXXA Exposure to other specified factors, initial encounter; Y93.89 Activity, other specified; Y92.89 Other specified places as the place of occurrence of the external cause; Y99.8 Other external cause status
CPT/HCPCS: 27658; 27698; 36415; 80053; 81001; 84702; 85025; 85610; 85730; J0330; J0690; J1040; J1170; J2001; J2250; J2270; J2405; J2704; J2795; J3010; U0003

== ENCOUNTER 2020-12-23 12:04 | Inpatient (IN) | payer MEDICARE, MEDICAID ==
[~2020-12-23] VITALS: Ht 160 cm; Wt 99.1 kg
[2020-12-23] MEDS ORDERED: ACETAMINOPHEN 325 MG TAB PO ONE (12:30)
[2020-12-23] MEDS ORDERED: SODIUM CHLORIDE 0.9% 1,000 ML IVB ONE (12:45)
[2020-12-23 13:40] LABS: Basophils # (auto) 0.1 10 ^3/uL (0-0.2); Basophils % (auto) 0.4 % (0.0-2.0); Eosinophils # (auto) 0.2 10 ^3/uL (0-0.8); Eosinophils % (auto) 0.9 % (0.0-7.0); Hematocrit 37.7 % (36.0-46.0); Hemoglobin 12.6 g/dL (12.2-16.2); Lymphocytes # (auto) 0.8 10 ^3/uL (0.4-5.4); Lymphocytes % (auto) 3.7 % (10.0-50.0); Mean Corpuscular Hemoglobin 29.2 pg (28.0-32.0); Mean Corpuscular Hgb Conc. 33.4 g/dL (32.0-36.0); Mean Corpuscular Volume 87.5 fL (80.0-100.0); Monocytes # (auto) 0.5 10 ^3/uL (0-1.3); Monocytes % (auto) 2.5 % (0.0-12.0); Neutrophils % (auto) 92.5 % (37.0-80.0); Platelet Count (auto) 340 10^3/uL (140-450); Red Blood Cells 4.31 10^6/uL (4.0-5.20); Red Cell Distribution Width 14.7 % (11.8-14.3); White Blood Cell 21.7 10^3/uL (4.4-10.8)
[2020-12-23 13:43] LABS: Urine WBC None Seen /hpf (0 - 5)
[2020-12-23 13:52] LABS: Urine Bacteria NONE SEEN /hpf (None Seen); Urine Blood Negative /uL (Negative); Urine Specific Gravity 1.009 (1.001-1.035)
[2020-12-23 13:57] LABS: Albumin 3.5 g/dL (3.4-5.0); BUN/Creatinine Ratio 15.5; Calcium 8.1 mg/dL (8.5-10.1); Magnesium 1.9 mg/dL (1.6-2.6); Potassium 3.3 mmol/L (3.5-5.1)
[2020-12-23 13:58] LABS: INR 1.07 (0.9-1.15); Partial Thromboplastin Time 26.9 sec (23.0-31.2)
[2020-12-23 14:00] LABS: Bilirubin, Total 0.5 mg/dL (0.2-1.0); Total Protein 7.3 g/dL (6.4-8.2)
[2020-12-23] MEDS ORDERED: HYDROcodone-ACET 10/325MG TAB PO ONE (14:00)
[2020-12-23] MEDS ORDERED: POTASSIUM CHL 20 Meq TABLET PO ONE ×2 (14:30→18:30)
[2020-12-23] MEDS ORDERED: cefTRIAXone 1GM/50ML D5W 50 ML IV ONE (14:30)
[2020-12-23] MEDS ORDERED: NITROGLYCERIN 0.4 MG SL TAB SL PRN ×2 (15:45→18:30)
[2020-12-23] MEDS ORDERED: MORPHINE SULF INJ 2 MG/ML SYRINGE 1ML IV PRN ×2 (15:45→18:30)
[2020-12-23] MEDS ORDERED: MULTIPLE VITAMIN TAB PO ONE (18:30)
[2020-12-23] MEDS ORDERED: AZITHROMYCIN 500MG/ 250ML 250 ML IV ONE (18:30)
[2020-12-23] MEDS ORDERED: hydrALAZINE HCL 20 MG/ML VL IV PRN (18:30)
[2020-12-23] MEDS ORDERED: ACETAMINOPHEN 325 MG TAB PO PRN (18:30)
[2020-12-23] MEDS ORDERED: guaiFENesin-DM 100/10mg/5ml SYR PO PRN (18:30)
[2020-12-23] MEDS ORDERED: BACLOFEN 10 MG TAB PO PRN (18:30)
[2020-12-23] MEDS ORDERED: DOCUSATE SOD 100 MG CAP PO PRN (18:30)
[2020-12-23] MEDS ORDERED: ONDANSETRON HCL 4 MG/2 ML VIAL IV PRN (18:30)
[2020-12-23] MEDS: MORPHINE SULF INJ 2 MG/ML SYRINGE 1ML IV PRN ×2 (19:01→23:58)
[2020-12-23] MEDS ORDERED: ENOXAPARIN SOD 100 MG/1 ML SYRINGE SC ONE (20:00)
[2020-12-23 20:43] LABS: Cholesterol 147 mg/dL (< 200); HDL Cholesterol 102 mg/dL (40-59); LDL Cholesterol 36 mg/dL (< 100); Triglycerides 67 mg/dL (< 150)
[2020-12-23] MEDS: SODIUM CHLOR 0.9% PF (SALINE LOCK) 10ML VIAL/SYR IV SCH (22:00)
[2020-12-23] MEDS ORDERED: ENOXAPARIN SOD 40 MG/0.4 ML SYRINGE SC SCH (22:00)
[2020-12-23] MEDS: ATORVASTATIN 20 MG TAB PO SCH (22:43)
[2020-12-23] MEDS: AMITRIPTYLINE HCL 25 MG TAB PO SCH (22:43)
[2020-12-23 22:51] LABS: Urine Bacteria NONE SEEN /hpf (None Seen); Urine Blood Negative /uL (Negative); Urine Specific Gravity 1.006 (1.001-1.035); Urine WBC 1 /hpf (0 - 5)
[2020-12-23 23:07] LABS: Alcohol, Urine < 3.0 mg/dL (0-10); Amphetamine Screen, Urine NEGATIVE (NEGATIVE); Barbiturate Scree,Urine NEGATIVE (NEGATIVE); Benzodiazephine Screen, Urine NEGATIVE (NEGATIVE); Cannabinoid Screen, Urine POSITIVE (NEGATIVE); Cocaine Screen, Urine NEGATIVE (NEGATIVE); Phencyclidine Screen, Urine NEGATIVE (NEGATIVE)
[2020-12-23 23:26] LABS: Opiate Scree,Urine POSITIVE (NEGATIVE)
[2020-12-24] VITALS (9 sets, daily range): BP systolic 120–139; BP diastolic 58–81
[2020-12-24] MEDS: MORPHINE SULF INJ 2 MG/ML SYRINGE 1ML IV PRN ×4 (04:28→22:08)
[2020-12-24] MEDS: SODIUM CHLOR 0.9% PF (SALINE LOCK) 10ML VIAL/SYR IV SCH ×3 (05:30→21:05)
[2020-12-24] MEDS: HYDROcodone-ACET 5/325MG TAB PO PRN (06:03)
[2020-12-24 06:30] LABS: Basophils # (auto) 0 10 ^3/uL (0-0.2); Basophils % (auto) 0.1 % (0.0-2.0); Eosinophils # (auto) 0.2 10 ^3/uL (0-0.8); Eosinophils % (auto) 1.2 % (0.0-7.0); Hematocrit 35.9 % (36.0-46.0); Hemoglobin 11.8 g/dL (12.2-16.2); Lymphocytes # (auto) 1.1 10 ^3/uL (0.4-5.4); Lymphocytes % (auto) 5.7 % (10.0-50.0); Mean Corpuscular Hemoglobin 28.9 pg (28.0-32.0); Mean Corpuscular Volume 87.7 fL (80.0-100.0); Monocytes # (auto) 0.4 10 ^3/uL (0-1.3); Monocytes % (auto) 2.1 % (0.0-12.0); Neutrophils # (auto) 18.3 10 ^3/uL (1.6-8.6); Neutrophils % (auto) 90.9 % (37.0-80.0); Platelet Count (auto) 314 10^3/uL (140-450); Red Blood Cells 4.09 10^6/uL (4.0-5.20); Red Cell Distribution Width 14.7 % (11.8-14.3); White Blood Cell 20.1 10^3/uL (4.4-10.8)
[2020-12-24 06:43] LABS: Chloride 108 mmol/L (98-107); Potassium 3.7 mmol/L (3.5-5.1); Sodium 138 mmol/L (136-145)
[2020-12-24 07:00] LABS: Alanine Aminotransferase 34 U/L (13-56); Albumin 3.1 g/dL (3.4-5.0); Alkaline Phosphatase 166 U/L (45-117); Anion Gap 7 (5-15); Aspartate Aminotransferase 20 U/L (15-37); BUN/Creatinine Ratio 14.8; Bilirubin, Total 0.6 mg/dL (0.2-1.0); Blood Urea Nitrogen 9 mg/dL (7-18); Calcium 8.4 mg/dL (8.5-10.1); Carbon Dioxide 23 mmol/L (21-32); GFR African American 127 mL/min; GFR Non-African American 105 mL/min; Glucose 80 mg/dL (74-106); Magnesium 2.2 mg/dL (1.6-2.6); Phosphorus 2.5 mg/dL (2.5-4.90); Total Protein 6.9 g/dL (6.4-8.2); Uric Acid 4.7 mg/dL (2.6-6.0)
[2020-12-24] MEDS: cefTRIAXone 1GM/50ML D5W 50 ML IV SCH (08:45)
[2020-12-24] MEDS: AZITHROMYCIN 500MG/ 250ML 250 ML IV SCH (09:29)
[2020-12-24] MEDS: ASCORBIC ACID 1,000 MG TAB PO SCH (09:30)
[2020-12-24] MEDS: MULTIPLE VITAMIN TAB PO SCH (09:30)
[2020-12-24] MEDS: amLODIPine BESYLATE 5 MG TAB PO SCH (09:31)
[2020-12-24] MEDS ORDERED: POTASSIUM CHL 20 Meq TABLET PO SCH (10:00)
[2020-12-24] MEDS ORDERED: CHOLECALCIFEROL (VITD3) 2,000 UNIT CAP/TAB PO SCH (10:00)
[2020-12-24] MEDS ORDERED: MULTIPLE VITAMINS W/ MINERALS TAB PO SCH (10:00)
[2020-12-24] MEDS: LORazepam 0.5 MG TAB PO PRN (12:08)
[2020-12-24] MEDS ORDERED: ENOXAPARIN SOD 40 MG/0.4 ML SYRINGE SC ONE (13:30)
[2020-12-24] MEDS ORDERED: LACTULOSE 20Gm/30ML SOLN PO ONE (15:45)
[2020-12-24] MEDS: IPRATROPIUM BROM 0.5 MG/2.5ML INH SOL NEB SCH ×2 (19:00→22:37)
[2020-12-24] MEDS: ALBUTEROL SULF 2.5 MG/0.5ML(0.5%) NEB SOLN NEB SCH ×2 (19:00→22:37)
[2020-12-24] MEDS: AMITRIPTYLINE HCL 25 MG TAB PO SCH (21:04)
[2020-12-24] MEDS: ATORVASTATIN 20 MG TAB PO SCH (21:04)
[2020-12-24] MEDS: ENOXAPARIN SOD 100 MG/1 ML SYRINGE SC SCH (21:05)
[2020-12-25] VITALS (7 sets, daily range): BP systolic 119–139; BP diastolic 64–86
[2020-12-25] MEDS: LORazepam 0.5 MG TAB PO PRN ×3 (01:29→21:29)
[2020-12-25] MEDS: MORPHINE SULF INJ 2 MG/ML SYRINGE 1ML IV PRN ×5 (03:12→23:19)
[2020-12-25] MEDS: SODIUM CHLOR 0.9% PF (SALINE LOCK) 10ML VIAL/SYR IV SCH ×3 (05:57→21:28)
[2020-12-25] MEDS: IPRATROPIUM BROM 0.5 MG/2.5ML INH SOL NEB SCH ×3 (07:18→21:26)
[2020-12-25] MEDS: ALBUTEROL SULF 2.5 MG/0.5ML(0.5%) NEB SOLN NEB SCH ×3 (07:18→21:26)
[2020-12-25] MEDS: cefTRIAXone 1GM/50ML D5W 50 ML IV SCH (08:39)
[2020-12-25] MEDS: MULTIPLE VITAMIN TAB PO SCH (09:19)
[2020-12-25] MEDS: ENOXAPARIN SOD 100 MG/1 ML SYRINGE SC SCH (09:19)
[2020-12-25] MEDS: ASCORBIC ACID 1,000 MG TAB PO SCH (09:19)
[2020-12-25] MEDS: LACTULOSE 20Gm/30ML SOLN PO SCH (09:19)
[2020-12-25] MEDS: amLODIPine BESYLATE 5 MG TAB PO SCH (09:21)
[2020-12-25] MEDS: AZITHROMYCIN 500MG/ 250ML 250 ML IV SCH (09:29)
[2020-12-25] MEDS ORDERED: ENOXAPARIN SOD 40 MG/0.4 ML SYRINGE SC SCH (10:00)
[2020-12-25 10:17] LABS: Basophils # (auto) 0 10 ^3/uL (0-0.2); Basophils % (auto) 0.2 % (0.0-2.0); Eosinophils # (auto) 0.1 10 ^3/uL (0-0.8); Eosinophils % (auto) 1.4 % (0.0-7.0); Hematocrit 36.8 % (36.0-46.0); Hemoglobin 12.2 g/dL (12.2-16.2); Lymphocytes # (auto) 0.8 10 ^3/uL (0.4-5.4); Lymphocytes % (auto) 7.4 % (10.0-50.0); Mean Corpuscular Hemoglobin 29.1 pg (28.0-32.0); Mean Corpuscular Hgb Conc. 33.1 g/dL (32.0-36.0); Mean Corpuscular Volume 88.1 fL (80.0-100.0); Monocytes # (auto) 0.3 10 ^3/uL (0-1.3); Platelet Count (auto) 308 10^3/uL (140-450); Red Blood Cells 4.18 10^6/uL (4.0-5.20); Red Cell Distribution Width 14.5 % (11.8-14.3); White Blood Cell 10.2 10^3/uL (4.4-10.8)
[2020-12-25] MEDS ORDERED: ERGOCALCIFEROL 50,000 UNIT(1.25MG) CAP PO SCH (11:00)
[2020-12-25] MEDS: ATORVASTATIN 20 MG TAB PO SCH (21:28)
[2020-12-25] MEDS: AMITRIPTYLINE HCL 25 MG TAB PO SCH (21:28)
[2020-12-25] MEDS: HYDROcodone-ACET 5/325MG TAB PO PRN (21:29)
[2020-12-26 05:00] VITALS: BP 121/65
[2020-12-26] MEDS: SODIUM CHLOR 0.9% PF (SALINE LOCK) 10ML VIAL/SYR IV SCH ×2 (06:09→10:34)
[2020-12-26] MEDS: ALBUTEROL SULF 2.5 MG/0.5ML(0.5%) NEB SOLN NEB SCH ×3 (06:44→11:55)
[2020-12-26] MEDS: IPRATROPIUM BROM 0.5 MG/2.5ML INH SOL NEB SCH ×3 (06:44→11:55)
[2020-12-26 08:30] VITALS: BP 126/97
[2020-12-26 08:58] VITALS: BP 126/97
[2020-12-26] MEDS: cefTRIAXone 1GM/50ML D5W 50 ML IV SCH (09:04)
[2020-12-26] MEDS: MULTIPLE VITAMIN TAB PO SCH (09:05)
[2020-12-26] MEDS: LACTULOSE 20Gm/30ML SOLN PO SCH (09:05)
[2020-12-26] MEDS: amLODIPine BESYLATE 5 MG TAB PO SCH (09:05)
[2020-12-26] MEDS ORDERED: ASCORBIC ACID 500 MG TAB PO SCH (10:00)
[2020-12-26] MEDS ORDERED: ENOXAPARIN SOD 40 MG/0.4 ML SYRINGE SC SCH (10:00)
[2020-12-26] MEDS: AZITHROMYCIN 500MG/ 250ML 250 ML IV SCH (10:27)
[2020-12-26] MEDS: MORPHINE SULF INJ 2 MG/ML SYRINGE 1ML IV PRN (10:32)
[2020-12-26 10:49] LABS: Basophils # (auto) 0 10 ^3/uL (0-0.2); Basophils % (auto) 0.4 % (0.0-2.0); Eosinophils # (auto) 0.3 10 ^3/uL (0-0.8); Eosinophils % (auto) 3.2 % (0.0-7.0); Hematocrit 39.9 % (36.0-46.0); Hemoglobin 13.6 g/dL (12.2-16.2); Lymphocytes # (auto) 0.9 10 ^3/uL (0.4-5.4); Lymphocytes % (auto) 10.7 % (10.0-50.0); Mean Corpuscular Hemoglobin 29.7 pg (28.0-32.0); Mean Corpuscular Volume 87.3 fL (80.0-100.0); Monocytes # (auto) 0.3 10 ^3/uL (0-1.3); Monocytes % (auto) 3.8 % (0.0-12.0); Neutrophils # (auto) 6.6 10 ^3/uL (1.6-8.6); Neutrophils % (auto) 81.9 % (37.0-80.0); Platelet Count (auto) 343 10^3/uL (140-450); Red Blood Cells 4.57 10^6/uL (4.0-5.20); Red Cell Distribution Width 14.2 % (11.8-14.3)
[2020-12-26] MEDS ORDERED: AZIT500T66 PO (11:59)
[2020-12-26] MEDS ORDERED: ERGO1CAP23 PO (11:59)
[2020-12-26] MEDS ORDERED: ALBUAER3 IN (11:59)
[2020-12-26] MEDS ORDERED: AMOX-277 PO (11:59)
[2020-12-26 12:40] VITALS: BP 122/62
[2020-12-26 14:56] VITALS: BP 122/62
[2020-12-26 16:46] VITALS: BP 125/67
== END 2020-12-26 17:30 | disposition home or self-care (01) | DRG 871 ==
LOC: ER 12:04 → TELE 15:42 → TELE-WESTW 21:55
PROVIDERS: ADMIT Hospitalist; ATTEND Internal Medicine
DX: A41.9 Sepsis, unspecified organism (principal); J69.0 Pneumonitis due to inhalation of food and vomit; E66.01 Morbid (severe) obesity due to excess calories; E87.6 Hypokalemia; M79.7 Fibromyalgia; E78.5 Hyperlipidemia, unspecified; E11.9 Type 2 diabetes mellitus without complications; Z20.822 Contact with and (suspected) exposure to COVID-19; I10 Essential (primary) hypertension; E55.9 Vitamin D deficiency, unspecified; F41.9 Anxiety disorder, unspecified; M19.90 Unspecified osteoarthritis, unspecified site; Z68.36 Body mass index [BMI] 36.0-36.9, adult; Z79.899 Other long term (current) drug therapy; Z82.49 Family history of ischemic heart disease and other diseases of the circulatory system; Z82.5 Family history of asthma and other chronic lower respiratory diseases; Z83.3 Family history of diabetes mellitus; Z86.16 Personal history of COVID-19; Z88.2 Allergy status to sulfonamides; Z88.8 Allergy status to other drugs, medicaments and biological substances
CPT/HCPCS: 36415; 71045; 71250; 78582; 80053; 80061; 80307; 81001; 82306; 83036; 83605; 83735; 83880; 84100; 84443; 84484; 84550; 85025; 85379; 85610; 85730; 87040; 87086; 87426; 93005; 93971; 94640; 96361; 96365; G0378; J0696; J2405